=== PATIENT | male | born 1990 | race Caucasian/White ===

== ENCOUNTER 2016-10-31 17:39 | Emergency (ER) | payer MEDICAID ==
[~2016-10-31] VITALS: Ht 188 cm; Wt 83.9 kg
[2016-10-31 19:32] VITALS: BP 119/84
== END 2016-10-31 19:32 | disposition home or self-care (01) ==
LOC: ED 17:39
DX: T22.20XA Burn of second degree of shoulder and upper limb, except wrist and hand, unspecified site, initial encounter (principal); T20.27XA Burn of second degree of neck, initial encounter; T20.26XA Burn of second degree of forehead and cheek, initial encounter; T31.0 Burns involving less than 10% of body surface; X16.XXXA Contact with hot heating appliances, radiators and pipes, initial encounter; Y93.89 Activity, other specified; Y92.89 Other specified places as the place of occurrence of the external cause; Y99.8 Other external cause status
CPT/HCPCS: J1885; J2270; Q0162